=== PATIENT | male | born 1985 | race American Indian/Alaskan Native ===

== ENCOUNTER 2017-06-22 13:59 | Emergency (ER) | payer BC, OTHER ==
[2017-06-22 14:00] VITALS: BMI 26.6
[2017-06-22] MEDS ORDERED: Morphine 4 mg/ml ISec IVP STA (14:17)
[2017-06-22] MEDS ORDERED: Sodium Chloride 0.9% 1,000 ML IV STA (14:19)
[2017-06-22] MEDS ORDERED: Iohexol 240 (50 ml) ONE (14:26)
--- NOTE | 2017-06-22 14:37 | ED PDOC ---
Arrival/HPI - General Historian: Patient EM Caveat: Acuity of Condition - History of Present Illness Time/Duration: Prior to Arrival Symptom Onset: Sudden Symptom Course: Unchanged Quality: Aching Severity Level: 10 Activities at Onset: Sleeping Context: Home <Chon Lynn - Last Filed: 06/22/17 22:12> <MichaelleOni - Last Filed: 06/22/17 22:14> - General Chief Complaint: Abdominal Pain Time Seen by Provider: 06/22/17 14:00 - History of Present Illness Narrative History of Present Illness (Text): Patient is a 31 year old male with no previous pas medical history as per patient who [place] [facility] [place] 06/22/17 with complaints of adominal pain, diarrhea, and vomiting. Patient states he was awoken out of bed at 6 a.m. this morning which was accompanied by several episodes of diarrhea. Patient states the pain was originally in the epigastric area and then localized to RLQ. He states the pain has been constant, describes it as a dull ache which he rates a 10/10. He also mentions the pain is exacerbated with moving from side to side, and that it's hard to find a comfortable position to lay. Patient states this has never happened before. Last he recalls was eating [employer] for dinner which he normally eats. He mentions having 4-5 episodes of diarrhea every hour since the first episode at 7 a.m. He mentions one episode containing some blood, but the vast majority containing loose mucous. Admits to vomiting which began around 11 a.m. this morning and has experienced 3 episodes. Patient denies dizziness, weakness, chest pain, shortness of breath, dysuria, headache. 06/22/17 14:41 (Chon Lynn) Past Medical History - Provider Review Nursing Documentation Reviewed: Yes - Infectious Disease Hx of Infectious Diseases: None - Psychiatric Hx Substance Use: Yes - Surgical History Hx Abdominal Aortic Aneurysm Repair: No - Anesthesia Hx Anesthesia: No Hx Anesthesia Reactions: No Hx Malignant Hyperthermia: No <Chon Lynn - Last Filed: 06/22/17 22:12> Family/Social History - Physician Review Nursing Documentation Reviewed: Yes Family/Social History: Other (non contributory) Smoking Status: Current Some Days Smoker Hx Alcohol Use: Yes Hx Substance Use: Yes Substance used: MJ <Chon Lynn - Last Filed: 06/22/17 22:12> Allergies/Home Meds <Chon Lynn - Last Filed: 06/22/17 22:12> <Oni Braswell - Last Filed: 06/22/17 22:14> Allergies/Adverse Reactions: Allergies No Known Allergies Allergy (Verified 06/22/17 14:09) Review of Systems - Physician Review All systems were reviewed & negative as marked: Yes - Review of Systems Systems not reviewed;Unavailable: Acuity of Condition Constitutional: absent: Fatigue, Fevers Eyes: Normal ENT: Normal Respiratory: absent: SOB, Cough Cardiovascular: absent: Chest Pain, Palpitations Gastrointestinal: Abdominal Pain, Diarrhea (one episode of bloody stool, rest of BMs with mucous), Nausea, Vomiting Genitourinary Male: Normal. absent: Dysuria, Hematuria Skin: absent: Rash, Pruritis Neurological: absent: Headache, Dizziness Endocrine: Normal Hemo/Lymphatic: Normal Psychiatric: Normal <Chon Lynn - Last Filed: 06/22/17 22:12> Physical Exam Vital Signs Reviewed: Yes Temperature: Afebrile Blood Pressure: Hypertensive Pulse: Regular Respiratory Rate: Normal Appearance: Positive for: Uncomfortable Pain Distress: Moderate Mental Status: Positive for: Alert and Oriented X 3 - Systems Exam Head: Present: Atraumatic, Normocephalic Extroacular Muscles: Present: EOMI Conjunctiva: Present: Icteric Mouth: Present: Dry Respiratory/Chest: Present: Clear to Auscultation, Good Air Exchange, Respiratory Distress Cardiovascular: Present: Regular Rate and Rhythm, Murmurs, Normal S1, S2 Abdomen: Present: Tenderness, Distention, Normal Bowel Sounds Upper Extremity: Present: Normal Inspection Lower Extremity: Present: Normal Inspection Neurological: Present: CN II-XII Intact Skin: Present: Warm, Normal Color Psychiatric: Present: Alert, Oriented x 3 <LynnChon - Last Filed: 06/22/17 22:12> Medical Decision Making Re-evaluation Time: 20:55 (Patient was re-evaluated s/p reglan and PO challenge. Patient passed PO challenge. ) - Lab Interpretations I have reviewed the lab results: Yes <Ryan Lynnon - Last Filed: 06/22/17 22:12> <Oni Braswell - Last Filed: 06/22/17 22:14> ED Course and Treatment: Assessment 31 year old male with complaints of diarrhea, abdominal pain, and vomiting Plan - IVF - CT abdomen/pelvis - CBC, CMP, Amylase, Lipase, Procalcitonin, Urinalysis - Zofran, Pepcid, Morphine 06/22/17 14:38 (Chon Lynn) 06/22/17 14:54 Andrew Dangelo is a 31 year old male who presents to the emergency department with diarrhea, abdominal pain, and vomiting since this morning. In agreement with resident note which contains more details about the patient. Patient was seen and evaluated with resident. Came up with plan and treatment together. 06/22/17 22:13 Patient with noted history. Feeling better s/p meds and tolerating po well. No fever with minimal leukocytosis and pain is controlled. Given enterocolitis - will d/c on abx and have him follow up with the medical clinic. (Oni Braswell) - Lab Interpretations Lab Results: 06/22/17 14:35 06/22/17 14:35 Lab Results 06/22/17 17:00: Urine Color Yellow, Urine Appearance Clear, Urine pH 6.0, Ur Specific Basom 1.020, Urine Protein Negative, Urine Glucose (UA) Negative, Urine Ketones 40 H, Urine Blood Trace-lysed H, Urine Nitrate Negative, Urine Bilirubin Negative, Urine Urobilinogen 0.2, Ur Leukocyte Esterase Negative, Urine RBC 2 - 5, Urine WBC 0 - 2, Ur Epithelial Cells 0 - 2, Urine Bacteria Mod 06/22/17 14:35: Sodium 142, Potassium 4.1, Chloride 103, Carbon Dioxide 25, Anion Gap 18, BUN 15, Creatinine 0.9, Est GFR ( Amer) > 60, Est GFR (Non- Af Amer) > 60, Random Glucose 127 H, Calcium 9.7, Total Bilirubin 0.4, AST 17, ALT 23, Alkaline Phosphatase 83, Total Protein 7.6, Albumin 4.6, Globulin 3.0, Albumin/Globulin Ratio 1.5, Amylase 91, Lipase 41 06/22/17 14:35: WBC 11.2 H D, RBC 4.92, Hgb 14.8, Hct 42.1, MCV 85.6, MCH 30.1, MCHC 35.2, RDW 12.7, Plt Count 253, MPV 10.3, Gran % 94.3 H, Lymph % (Auto) 3.5 L, [place] % (Auto) 2.2, Eos % (Auto) 0.0 L, Baso % (Auto) 0.0, Gran # 10.57 H, Lymph # 0.4 L, [place] # 0.3, Eos # 0.0, Baso # 0.00, Neutrophils % (Manual) 95 H, Lymphocytes % (Manual) 4 L, Monocytes % (Manual) 1, Platelet Evaluation Normal, Anisocytosis (manual) Slight - RAD Interpretation Radiology Orders: 06/22/17 14:18 ABDOMEN & PELVIS [ABD PELVIS PO & IV CONTRAST] [CT] Stat - Medication Orders Current Medication Orders: Discontinued Medications Dicyclomine HCl (Bentyl) 20 mg PO ONCE STA Stop: 06/22/17 18:07 Last Admin: 06/22/17 18:13 Dose: 20 mg Famotidine (Pepcid) 20 mg IVP STAT STA Stop: 06/22/17 14:18 Last Admin: 06/22/17 14:45 Dose: 20 mg Hydromorphone HCl (Dilaudid) 0.5 mg IVP STAT STA Stop: 06/22/17 17:29 Last Admin: 06/22/17 17:45 Dose: 0.5 mg Sodium Chloride (Sodium Chloride 0.9%) 1,000 mls @ 999 mls/hr IV .Q1H1M STA Stop: 06/22/17 15:19 Last Admin: 06/22/17 14:45 Dose: 999 mls/hr Metronidazole (Flagyl) 500 mg in 100 mls @ 100 mls/hr IVPB STAT STA PRN Reason: Protocol Stop: 06/22/17 19:40 Last Admin: 06/22/17 19:26 Dose: 100 mls/hr Ceftriaxone Sodium (Rocephin 1 Gram Ivpb) 1 gm in 100 mls @ 200 mls/hr IV ONCE STA PRN Reason: Protocol Stop: 06/22/17 19:09 Last Admin: 06/22/17 18:52 Dose: 200 mls/hr Iohexol (Omnipaque 240 (50 Ml)) Confirm Administered Dose 50 ml .ROUTE .STK-MED ONE Stop: 06/22/17 14:27 Iohexol (Omnipaque 350 100 Ml) Confirm Administered Dose 350 mg .ROUTE .STK-MED ONE Stop: 06/22/17 16:23 Metoclopramide HCl (Reglan) 10 mg IVP STAT STA Stop: 06/22/17 17:27 Last Admin: 06/22/17 17:45 Dose: 10 mg Morphine Sulfate (Morphine) 4 mg IVP STAT STA Stop: 06/22/17 14:18 Last Admin: 06/22/17 14:45 Dose: 4 mg Re-Assess: JENSEN Pain Assessment Document 06/22/17 15:35 EWO (Rec: 06/22/17 17:01 [id number]) Pain Reassessment Is this a pain reassessment? Yes Sleep Is patient sleeping during reassessment? 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 / has examined the patient and agrees with the treatment plan. <Oni Braswell - Last Filed: 06/22/17 22:14> Disposition/Present on Arrival - Present on Arrival Any Indicators Present on Arrival: No History of DVT/PE: No History of Uncontrolled Diabetes: No Urinary Catheter: No History of Decub. Ulcer: No History Surgical Site Infection Following: None - Disposition Have Diagnosis and Disposition been Completed?: Yes Disposition Time: 21:00 Patient Plan: Discharge <Chon Lynn - Last Filed: 06/22/17 22:12> <Oni Braswell - Last Filed: 06/22/17 22:14> - Disposition Diagnosis: Enterocolitis Disposition: HOME/ ROUTINE Condition: GOOD Discharge Instructions (ExitCare): Colitis (ED) Additional Instructions: Renato Sparkser, thank you for letting us take care of you today. You were treated for enterocolitis. The emergency medical care you received today was directed at your acute symptoms. If you were prescribed any medication, please fill it and take as directed. It may take several days for your symptoms to resolve. Return to the Emergency Department if your symptoms worsen, do not improve, or if you have any other problems. Please contact the [facility] [place] and make an appointment for further follow up. Our treatment cannot replace ongoing medical care by a primary care provider (PCP) outside of the emergency department. Thank you for allowing the [facility] team to be part of your care today. Prescriptions: Ciprofloxacin/Ciprofloxa HCl [Ciprofloxacin] 500 mg PO BID #20 ter metroNIDAZOLE [Flagyl] 500 mg PO TID #30 tab Ondansetron ODT [Zofran ODT] 4 mg PO Q6 #10 odt Referrals: PCP,NO [Primary Care Provider] - Follow up with primary Forms: [employer] (Maltese), WORK NOTE
[2017-06-22 15:01] LABS: GRAN # 10.57 (1.4-6.5); GRAN % 94.3 % (50.0-68.0); HEMATOCRIT 42.1 % (42.0-52.0); LYMPH # 0.4 (1.2-3.4); LYMPH % 3.5 % (22.0-35.0); MEAN CELL VOLUME 85.6 fl (80.0-105.0); MEAN CORPUSCULAR HEMOGLOBIN 30.1 pg (25.0-35.0); MEAN CORPUSCULAR HGB CONC 35.2 g/dl (31.0-37.0); MEAN PLATELET VOLUME 10.3 fl (7.0-11.0); MONO # 0.3 (0.1-0.6); MONO % 2.2 % (1.0-6.0); PLATELET COUNT 253 10^3/uL (120.0-450.0); RED CELL DISTRIBUTION WIDTH 12.7 % (11.5-14.5); WHITE BLOOD COUNT 11.2 10^3/ul (4.5-11.0)
[2017-06-22 15:10] LABS: ALB/GLOB RATIO 1.5 (1.1-1.8); ALKALINE PHOSPHATASE 83 U/L (38-126); ALT/SGPT 23 U/L (7-56); AMYLASE 91 U/L (35-125); AST/SGOT 17 U/L (17-59); BILIRUBIN,TOTAL 0.4 mg/dL (0.2-1.3); BLOOD UREA NITROGEN 15 mg/dL (7-21); CALCIUM 9.7 mg/dL (8.4-10.5); CARBON DIOXIDE 25 mmol/L (21-33); CHLORIDE 103 mmol/L (98-107); GFR AFRICAN-AMERICAN > 60; GLUCOSE,RANDOM 127 mg/dL (70-110); LIPASE 41 U/L (23-300); POTASSIUM 4.1 mmol/L (3.6-5.0); SODIUM 142 mmol/L (132-148); TOTAL PROTEIN 7.6 g/dL (5.8-8.3)
[2017-06-22 15:14] VITALS: O2SAT 100
[2017-06-22 15:42] LABS: NEUTROPHIL 95 % (50.0-70.0)
[2017-06-22 15:43] LABS: ANISOCYTOSIS SLIGHT; PLATELET ESTIMATE NORMAL (NORMAL)
[2017-06-22] MEDS ORDERED: Iohexol 350 MG/100 ML VIAL ONE (16:22)
[2017-06-22 17:12] LABS: URINE BILIRUBIN NEGATIVE (NEGATIVE); URINE BLOOD TRACE-LYSED (NEGATIVE); URINE GLUCOSE (UA) NEGATIVE (NEGATIVE); URINE KETONE 40 mg/dL (NEGATIVE); URINE LEUKOCYTE ESTERASE NEGATIVE Leu/uL (NEGATIVE); URINE PROTEIN NEGATIVE mg/dL (<30 mg/dL); URINE UROBILINOGEN 0.2 E.U./dL (<1 E.U./dL)
[2017-06-22 17:13] LABS: URINE APPEARANCE CLEAR (CLEAR); URINE COLOR YELLOW (YELLOW)
[2017-06-22 17:15] LABS: URINE BACTERIA MOD (NEG); URINE EPITHELIAL CELLS 0 - 2 /hpf (0-5); URINE WBC 0 - 2 /hpf (0-6)
[2017-06-22] MEDS ORDERED: HYDROmorphone 0.5 mg/0.5 ml ISec IVP STA (17:28)
--- NOTE | 2017-06-22 18:02 | CT ---
PROCEDURE: CT abdomen pelvis dated 06/22/2017 HISTORY: abdominal pain COMPARISON: No prior TECHNIQUE: Contrast dose: 91 cc Omnipaque 350 contrast Radiation dose: Total exam DLP = 562.7 mGy-cm. This CT exam was performed using one or more of the following dose reduction techniques: Automated exposure control, adjustment of the mA and/or kV according to patient size, and/or use of iterative reconstruction technique. FINDINGS: LOWER THORAX: Unremarkable. LIVER: Liver exhibits relatively normal size measuring approximately 16.7 cm in CC dimension. Note is made of small amount of presumed fat anteriorly on either side of the at fissure. No definitive evidence of hepatic mass collection or calcification. . Portal and splenic veins are opacified. GALLBLADDER AND BILE DUCTS: Gallbladder is physiologically distended. No evidence of intraluminal gallbladder calculi. PANCREAS: Pancreas appears unremarkable. SPLEEN: Spleen is unremarkable ADRENALS: No adrenal lesions. KIDNEYS AND URETERS: Kidneys demonstrate relatively symmetric nephrograms. No evidence of nephrolithiasis or hydronephrosis. There is a tiny sub cm low-attenuation focus posterior cortex mid pole right kidney too small to characterize. Followup nonemergent renal ultrasound could be performed to further characterize this small low-attenuation focus. Note the Hounsfield units are higher than that of a simple cyst however this could be due to volume averaging of enhancing adjacent renal parenchyma. VASCULATURE: Unremarkable. No aortic aneurysm. BOWEL: Evaluation of the bowel is limited due to incomplete opacification. The stomach is distended with oral contrast material and air. . There also appears to be some mild wall thickening of the distal small bowel. Rule out enteritis. No evidence of acute mechanical small bowel obstruction. Note made of mild wall thickening of most of the colon. Rule out colitis. There may also be some submucosal fat deposition suggesting chronic bouts of inflammation as well. APPENDIX: What appears to represent normal appendix best seen on coronal image number [id number] and axial image number [id number]. . . PERITONEUM: Unremarkable. No free fluid. No free air. LYMPH NODES: Unremarkable. No enlarged lymph nodes. BLADDER: The urinary bladder is incompletely distended which presumably accounts for thick-walled appearance. Muscular hypertrophy may contribute. Possibility of a cystitis not excluded. REPRODUCTIVE: Prostate gland measures approximately 3.5 cm in transverse dimension. BONES: There is a tiny chronic appearing Schmorl's node along the superior T12 and early developing Schmorl's node superior L1 endplates. No acute compression fractures. OTHER FINDINGS: None. IMPRESSION: Findings suggest mild enterocolitis. . Clinic correlation recommended to exclude post infectious or inflammatory etiologies. . Sub cm low-attenuation focus posterior cortex mid pole right kidney too small to characterize. Followup nonemergent renal ultrasound could be performed for further evaluation.
[2017-06-22] MEDS ORDERED: cefTRIAXone 1 gm 1 GM/100 ML BAG IV STA (18:40)
[2017-06-22] MEDS ORDERED: metroNIDAZOLE IV 500 mg/100 ml 500 MG/100 ML BAG IVPB STA (18:41)
[2017-06-22 18:56] VITALS: TEMP 98.2
[2017-06-22 21:27] VITALS: BP 138/61; PULSE 62; RESP 18
== END 2017-06-22 21:27 | disposition home or self-care (01) ==
LOC: ED 13:59
DX: K52.9 Noninfective gastroenteritis and colitis, unspecified (principal)
CPT/HCPCS: 74177; 80053; 81001; 82150; 83690; 84145; 85025; 96365; 96375; 99284; J0696; J1170; J2270; J2405; J2765; J7040; Q9966; Q9967